=== PATIENT | female | born 1980 | race Caucasian/White ===

== ENCOUNTER 2022-06-12 19:13 | Inpatient (IN) | payer OTHER ==
[~2022-06-12] VITALS: Ht 177.8 cm; Wt 151.5 kg
[2022-06-12 19:32] VITALS: BP 136/45
--- NOTE | 2022-06-12 19:45 | NUR ---
pt to 12
--- NOTE | 2022-06-12 19:48 | NUR ---
MD Brown at bedside assessing pt.
[2022-06-12] MEDS ORDERED: MAGNESIUM HYDROXIDE 2400 MG/30 ML UDC PO ONE (19:50)
[2022-06-12] MEDS ORDERED: ALBUTEROL SULFATE/IPRATROPIU 3 ML SOL IH ONE (19:50)
--- NOTE | 2022-06-12 20:11 | NUR ---
RT by bedside
[2022-06-12] MEDS ORDERED: ALBUTEROL 0.083% 2.5 MG/3 ML NEBU INH ONE ×2 (20:18→20:35)
[2022-06-12] MEDS ORDERED: predniSONE 20 MG TAB PO ONE (20:20)
--- NOTE | 2022-06-12 20:22 | NUR ---
RAD at bedside for imaging.
--- NOTE | 2022-06-12 20:46 | NUR ---
Breathing tx completed; pt reports relief.
--- NOTE | 2022-06-12 20:58 | NUR ---
Urine collected and sent to lab.
[2022-06-12 21:28] LABS: APPEARANCE,URINE CLEAR (CLEAR); BILIRUBIN,URINE 1+ (NEGATIVE); BLOOD, URINE NEGATIVE (NEGATIVE); COLOR,URINE YELLOW (YELLOW); LEUKOCYTE ESTERASE ,URINE NEGATIVE (NEGATIVE); NITRITE, URINE NEGATIVE (NEGATIVE); UGLUCOSE NEGATIVE (NEGATIVE)
[2022-06-12 21:51] LABS: BASOPHILS # (AUTO) 0.1 K/uL (0.00-0.22); BASOPHILS % (AUTO) 0.5 % (0.0-2.0); EOSINOPHILS # (AUTO) 2.4 K/uL (0-0.4); EOSINOPHILS % (AUTO) 15.9 % (0.0-4.0); HEMATOCRIT 20.8 % (36-48); LYMPHOCYTES % (AUTO) 20.1 % (20.5-51.1); MEAN CORPUSCULAR HEMOGLOBIN 16 pg (27-31); MEAN CORPUSCULAR HGB CONC 28 g/dL (33-37); MEAN CORPUSCULAR VOLUME 57.1 fL (80-94); MONOCYTES % (AUTO) 6.6 % (1.7-9.3); NEUTROPHILS # (AUTO) 8.5 K/uL (1.8-7.7); NEUTROPHILS % (AUTO) 56.9 % (42.2-75.2); PLATELET COUNT (AUTO) 436 K/uL (140-450); RED BLOOD CELL COUNT(AUTO) 3.64 MIL/uL (4.20-5.40)
[2022-06-12 21:54] LABS: HEMOGLOBIN 5.7 g/dL (12.0-16.0)
[2022-06-12 22:08] LABS: ALBUMIN 2.7 g/dL (3.4-5.0); ANION GAP 11.3 (8-16); CARBON DIOXIDE 28.9 mmol/L (21-32); CREATININE 0.7 mg/dL (0.6-1.3); POTASSIUM 3.2 mmol/L (3.5-5.1); TOTAL BILIRUBIN 0.5 mg/dL (0.0-1.0)
[2022-06-12 23:34] LABS: PROTHROMBIN TIME 10.8 secs (10.8-13.4)
[2022-06-13] MEDS ORDERED: ONDANSETRON 4 MG/2 ML VIAL IVP PRN (01:05)
[2022-06-13] MEDS ORDERED: HYDROcodone/APAP 5/325 MG 1 TAB TAB PO PRN (01:05)
[2022-06-13] MEDS ORDERED: ACETAMINOPHEN 325 MG TAB PO PRN (01:05)
--- NOTE | 2022-06-13 01:18 | NUR ---
swabs collected sent to lab
[2022-06-13] MEDS: NACL 0.9% 1,000 ML IV SCH ×3 (01:30→13:35)
--- NOTE | 2022-06-13 02:00 | NUR ---
Consent obtained by MD Brown and signed by Pt for administration of blood. Patient informed of potential complications associated with blood transfusion. Informed of possible transfusion reaction symptoms. Pt verbalized clear understanding.
[2022-06-13] MEDS ORDERED: cefTRIAXone 1,000 MG VIAL ONE (02:21)
[2022-06-13] MEDS ORDERED: SERT100T PO (03:46)
[2022-06-13] MEDS ORDERED: ESOM20EC PO (03:46)
--- NOTE | 2022-06-13 03:46 | NUR ---
Med rec completed; information obtained from pt.
--- NOTE | 2022-06-13 03:53 | NUR ---
Patient will be admitted to care of MD Babcock. Admited to Tele. Will go to room 105A. Belongings list completed. Report given to RODDY Grant. Questions/concerns answered.
[2022-06-13 04:30] VITALS: BP 132/75
--- NOTE | 2022-06-13 04:30 | NUR ---
ADMITTED PATIENT TO TELEMETRY UNIT FROM ER [facility] AWAKE ALERT ORIENTED X4. DX: CC: SOB, CONSTIPATION LAST BM 06/07/22. 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 NO SOB NOTED. NO COMPLAINTS OF PAIN. IV ACCESS TO RIGHT FOREARM INTACT AND PATENT. AMBULATORY, SKIN INTACT. CALL LIGHT WITHIN REACH. BED WHEELS LOCKED IN LOW POSITION.
--- NOTE | 2022-06-13 07:25 | NUR ---
BEDSIDE REPORT GIVEN TO MORNING NURSE FOR CONTINUITY OF CARE. PATIENT STABLE.
[2022-06-13 08:00] VITALS: BP 145/63
--- NOTE | 2022-06-13 08:00 | NUR ---
received in no acute distress, Bp Vss. Patient on 02 at 3l/nc wheezing noted Patient to receive 2 units of blood for Hgb of 5.7
--- NOTE | 2022-06-13 08:30 | NUR ---
1st unit of PRBC started. No transfusion reaction noted order given for HHN treatments and given, patient stated she started to feel better after receivin HHNTX
[2022-06-13 12:00] VITALS: BP 121/70
--- NOTE | 2022-06-13 13:30 | NUR ---
2nd unit of PRBC started, no transfusion reaction noted BP Vss
[2022-06-13] MEDS ORDERED: POTASSIUM CHLORIDE 10 MEQ TABER PO PRN (14:05)
[2022-06-13] MEDS: ALBUTEROL SULFATE/IPRATROPIU 3 ML SOL IH PRN (15:05)
--- NOTE | 2022-06-13 15:11 | NUR ---
PATIENT HAS BEEN SCREENED AND CATEGORIZED MODERATE NUTRITION RISK. PATIENT WILL BE SEEN WITHIN 3-5 DAYS OF ADMISSION. REVIEWED BY SARINA CARTWRIGHT RD
--- NOTE | 2022-06-13 16:00 | NUR ---
Patient had large BM 2x and felt better after. No wheezing noted. 2nd unit of PRBC done no transfusion reaction noted
[2022-06-13 18:00] VITALS: BP 124/76
--- NOTE | 2022-06-13 20:00 | NUR ---
PATIENT IN BED RESTING. NO DISTRESS NOTED ON 2L NC SATING 97%. DENIES PAIN. DAUGHTER AT BEDSIDE. CALL LIGHT ON EASY REACH. AMBULATORY. PATIENT STATED "I FEEL A LOT BETTER NOW". NEEDS ATTENDED AND MET.
[2022-06-13 22:11] LABS: HEMATOCRIT 25.1 % (36-48); HEMOGLOBIN 7.2 g/dL (12.0-16.0)
[2022-06-14] VITALS: BP 127/72
--- NOTE | 2022-06-14 00:45 | NUR ---
PATIENT IV INFILTRATED. STARTED A NEW IV TO RIGHT FOREARM WITH GOOD BACK FLOW OF BLOOD.
--- NOTE | 2022-06-14 01:28 | NUR ---
ROCEPHIN ADMINISTERED ORDERED.
[2022-06-14] MEDS: NACL 0.9% 1,000 ML IV SCH ×3 (02:05→14:35)
[2022-06-14] MEDS: ALBUTEROL SULFATE/IPRATROPIU 3 ML SOL IH PRN ×3 (02:37→23:56)
[2022-06-14 04:00] VITALS: BP 104/70
--- NOTE | 2022-06-14 07:23 | NUR ---
ENDORSED TO MORNING NURSE FOR CONTINUITY OF CARE. PATIENT STABLE AT THIS TIME.
[2022-06-14 07:48] LABS: ALBUMIN 2.7 g/dL (3.4-5.0); ANION GAP 13.4 (8-16); CARBON DIOXIDE 25.8 mmol/L (21-32); CREATININE 0.6 mg/dL (0.6-1.3); MAGNESIUM 2.1 mg/dL (1.8-2.4); POTASSIUM 4.2 mmol/L (3.5-5.1); TOTAL BILIRUBIN 0.3 mg/dL (0.0-1.0)
[2022-06-14 08:00] VITALS: BP 118/76
[2022-06-14 12:00] VITALS: BP 130/68
[2022-06-14] MEDS ORDERED: SODIUM FERRIC GLUCONATE 125 MG in NACL 0.9% 100 ML IV SCH (14:30)
[2022-06-14 16:00] VITALS: BP 136/62
[2022-06-14] MEDS: ASCORBIC ACID 500 MG TAB PO SCH (16:08)
[2022-06-14] MEDS: POLYETHYLENE GLYCOL 17 GM/PKT PO SCH (16:08)
[2022-06-14] MEDS: FERROUS SULFATE 325 MG TABEC PO SCH (17:00)
[2022-06-14 20:00] VITALS: BP 106/61
[2022-06-15] VITALS: BP 116/73
--- NOTE | 2022-06-15 00:42 | NUR ---
ADMINISTERED ROCEPHIN ORDERED.
[2022-06-15] MEDS: NACL 0.9% 1,000 ML IV SCH ×4 (03:05→21:08)
[2022-06-15 04:00] VITALS: BP 138/80
[2022-06-15 06:59] LABS: ALBUMIN 2.8 g/dL (3.4-5.0); CARBON DIOXIDE 26.8 mmol/L (21-32); CREATININE 0.7 mg/dL (0.6-1.3); POTASSIUM 3.8 mmol/L (3.5-5.1); TOTAL BILIRUBIN 0.4 mg/dL (0.0-1.0)
--- NOTE | 2022-06-15 07:29 | NUR ---
ENDORSED PATIENT TO AM NURSE FOR CONTINUITY OF CARE. PATIENT SLEEPING IN NO ACUTE DISTRESS NOTED. ON ROOM AIR. BREATHING NORMAL UNLABORED. CALL LIGHT ON EASY REACH.
[2022-06-15 08:00] VITALS: BP 116/59
[2022-06-15] MEDS: FERROUS SULFATE 325 MG TABEC PO SCH ×2 (08:46→17:38)
[2022-06-15] MEDS: POLYETHYLENE GLYCOL 17 GM/PKT PO SCH (08:47)
[2022-06-15] MEDS: ASCORBIC ACID 500 MG TAB PO SCH (08:47)
[2022-06-15 11:30] VITALS: BP 137/71
[2022-06-15 13:48] LABS: BASOPHILS # (AUTO) 0.4 K/uL (0.00-0.22); BASOPHILS % (AUTO) 2.3 % (0.0-2.0); EOSINOPHILS # (AUTO) 3.2 K/uL (0-0.4); EOSINOPHILS % (AUTO) 18.4 % (0.0-4.0); HEMATOCRIT 26.8 % (36-48); HEMOGLOBIN 7.5 g/dL (12.0-16.0); LYMPHOCYTES # (AUTO) 2.3 K/uL (2.5-16.5); LYMPHOCYTES % (AUTO) 13.1 % (20.5-51.1); MEAN CORPUSCULAR HEMOGLOBIN 17 pg (27-31); MEAN CORPUSCULAR HGB CONC 28 g/dL (33-37); MEAN CORPUSCULAR VOLUME 61.8 fL (80-94); MONOCYTES % (AUTO) 5.6 % (1.7-9.3); NEUTROPHILS # (AUTO) 10.5 K/uL (1.8-7.7); NEUTROPHILS % (AUTO) 60.6 % (42.2-75.2); PLATELET COUNT (AUTO) 528 K/uL (140-450); RED BLOOD CELL COUNT(AUTO) 4.34 MIL/uL (4.20-5.40); RED CELL DISTRIBUTION WIDTH 25.1 % (11.6-13.7); WHITE BLOOD COUNT (AUTO) 17.3 K/uL (4.8-10.8)
[2022-06-15] MEDS: ALBUTEROL SULFATE/IPRATROPIU 3 ML SOL IH PRN (15:21)
[2022-06-15 15:30] VITALS: BP 130/74
[2022-06-15] MEDS: predniSONE 20 MG TAB PO SCH (15:35)
--- NOTE | 2022-06-15 15:40 | NUR ---
pt refused miralax in AM, requested now. Given miralax 17Gm.
[2022-06-15 20:00] VITALS: BP 137/83
--- NOTE | 2022-06-15 22:31 | NUR ---
PATIENT WELL RESTED WATCHING ON HER IPAD. NO SOB NOTED. IVF NS INFUSING ORDERED. NO COMPLAINTS OF PAIN. CALL LIGHT IN REACH. NEEDS ATTENDED AND MET. AMBULATORY.
[2022-06-16] VITALS: BP 137/83
[2022-06-16 04:00] VITALS: BP 120/50
[2022-06-16] MEDS: NACL 0.9% 1,000 ML IV SCH (04:05)
--- NOTE | 2022-06-16 07:11 | NUR ---
ENDORSED PATIENT TO AM NURSE FOR CONTINUITY OF CARE. ALL NEEDS MET THROUGHOUT THE SHIFT.
[2022-06-16 07:48] LABS: ANION GAP 10.8 (8-16); CARBON DIOXIDE 28.2 mmol/L (21-32); CREATININE 0.7 mg/dL (0.6-1.3)
[2022-06-16 07:50] LABS: ALBUMIN 2.6 g/dL (3.4-5.0); ANION GAP 11.5 (8-16); CARBON DIOXIDE 27.5 mmol/L (21-32); CREATININE 0.7 mg/dL (0.6-1.3); MAGNESIUM 2.1 mg/dL (1.8-2.4); TOTAL BILIRUBIN 0.3 mg/dL (0.0-1.0)
[2022-06-16 08:00] VITALS: BP 116/65
[2022-06-16] MEDS: ASCORBIC ACID 500 MG TAB PO SCH (09:01)
[2022-06-16] MEDS: FERROUS SULFATE 325 MG TABEC PO SCH (09:01)
[2022-06-16] MEDS: POLYETHYLENE GLYCOL 17 GM/PKT PO SCH (09:02)
[2022-06-16] MEDS: predniSONE 20 MG TAB PO SCH (09:02)
[2022-06-16] MEDS ORDERED: FERR324T11 PO (09:25)
[2022-06-16] MEDS: ALBUTEROL SULFATE/IPRATROPIU 3 ML SOL IH PRN (11:21)
--- NOTE | 2022-06-16 11:55 | NUR ---
DC PLANNING A CASE OF 41 YEAR OLD FEMALE PATIENT ADMITTED FOR VAGINAL BLEEDING.TOTAL 3 UNITS PRBC TRANSFUSED FOR HGB OF 5.7.FOR DISCHARGE TODAY.TO FOLLOW UP WITH OB GYNE.
[2022-06-16 12:00] VITALS: BP 125/72
--- NOTE | 2022-06-16 15:10 | NUR ---
DISCHARGE INSTRUCTIONS EXPLAINED TO PT, PT VERBALIZED UNDERSTANDING. IV REMOVED, BELONGINGS RETURNED.
--- NOTE | 2022-06-20 10:33 | NUR ---
CALLED DR NAOMI [facility] OFFICE OFFICE LOCATED AT [address] [place] [address]. SPOKE WITH JACKELYN WHO INFORMED ME PATIENT HAS A FOLLOW UP APPOINTMENT FOR 06/20/2022 AT [id number],
== END 2022-06-16 15:00 | disposition home or self-care (01) | DRG 141 ==
LOC: MED 19:13 → MTU 06-13 01:06
PROVIDERS: ADMIT Student in an Organized Health Care Education/Training Program; ATTEND Student in an Organized Health Care Education/Training Program
PROC: 30233N1 Transfusion of Nonautologous Red Blood Cells into Peripheral Vein, Percutaneous Approach (ICD-10-PCS; principal; 2022-06-13)
DX: J45.901 Unspecified asthma with (acute) exacerbation (principal); J96.00 Acute respiratory failure, unspecified whether with hypoxia or hypercapnia; E43 Unspecified severe protein-calorie malnutrition; R65.10 Systemic inflammatory response syndrome (SIRS) of non-infectious origin without acute organ dysfunction; D62 Acute posthemorrhagic anemia; Z68.42 Body mass index [BMI] 45.0-49.9, adult; N93.8 Other specified abnormal uterine and vaginal bleeding; Z20.822 Contact with and (suspected) exposure to COVID-19; N93.9 Abnormal uterine and vaginal bleeding, unspecified; E66.01 Morbid (severe) obesity due to excess calories; T38.5X5A Adverse effect of other estrogens and progestogens, initial encounter; Z56.0 Unemployment, unspecified
CPT/HCPCS: 36415; 36430; 71045; 76830; 76856; 80048; 80053; 81003; 83605; 83735; 85018; 85025; 85610; 85730; 86886; 86900; 86901; 86920; 87040; 87081; 94640; 96365; 99291; J0696; J2916; J7060; J7512; J7613; P9016; Q0092